=== PATIENT | female | born 1995 | race Caucasian/White ===

== ENCOUNTER 2020-08-29 23:03 | Emergency (ER) | payer OTHER ==
[~2020-08-29] VITALS: Ht 165.1 cm; Wt 75.0 kg
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
[2020-08-29] MEDS ORDERED: ORPHENADRINE CITRATE 60 MG/2 ML VIAL. IM ONE (23:45)
[2020-08-29] MEDS ORDERED: KETOROLAC 60 MG/2 ML VIAL. IM ONE (23:45)
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
[2020-08-30 00:34] LABS: CLARITY,URINE CLEAR; COLOR,URINE STRAW
[2020-08-30 00:35] LABS: BACTERIA,URINE FEW /HPF (0-FEW); BILIRUBIN,URINE NEG (NEG); GLUCOSE,URINE NEG (NEG); NITRITE,URINE NEG (NEG); RBC,URINE 0 /HPF (0-2); SQUAMOUS EPITHELIAL CELL,UR FEW /LPF; UROBILINOGEN,URINE 0.2 mg/dL (0.2 mg/dL); WBC,URINE 0 /HPF (0-4)
[2020-08-30] MEDS ORDERED: HYDR-1179 PO (01:00)
[2020-08-30] MEDS ORDERED: CYCL-331 PO (01:00)
[2020-08-30 01:15] VITALS: BP 107/69
== END 2020-08-30 01:18 | disposition home or self-care (01) ==
LOC: ER 23:03
DX: S33.5XXA Sprain of ligaments of lumbar spine, initial encounter (principal); S16.1XXA Strain of muscle, fascia and tendon at neck level, initial encounter; R07.89 Other chest pain; R51.9 Headache, unspecified; M62.838 Other muscle spasm; M62.830 Muscle spasm of back; V89.2XXA Person injured in unspecified motor-vehicle accident, traffic, initial encounter; Y93.89 Activity, other specified; Y92.89 Other specified places as the place of occurrence of the external cause; Y99.0 Civilian activity done for income or pay
CPT/HCPCS: 70450; 71046; 72125; 72131; 81001; 81025; 96372; 99285; J1885; J2360